=== PATIENT | female | born 1980 | race Caucasian/White ===

== ENCOUNTER 2019-11-11 13:25 | Outpatient (CLI) | payer BC, SELFPAY ==
--- NOTE | ~2019-11-11 | US_ITS ---
EXAMINATION: US pelvic complete w TV EXAM DATE: 11/11/2019 14:30 INDICATION: Abnormal uterine bleeding. TECHNIQUE: Pelvic transabdominal and transvaginal sonogram was performed. There are multiple graysca le and Doppler images available for interpretation. There is no prior study for comparison. FINDINGS: Uterus measures 9.9 x 3.8 x 5.4 cm, and is morphologically normal. Endometrial stripe agustina sures 6 mm, within normal limits. There are nabothian cysts. There is no free pelvic fluid. Right adnexa: The ovary measures 1.7 x 2.4 x 1.5 cm and is morphologically normal. Ovarian vascular f low confirmed. Left adnexa: The ovary measures 2.5 x 1.7 x 2.9 cm and is morphologically normal. Ovarian vascular fl ow confirmed. IMPRESSION: Nabothian cysts. Reviewed, dictated and finalized at location A. IMPRESSION: Nabothian cysts.
[2019-11-11 14:45] LABS: Basophils Absolute Auto 0.1 K/mm3 (0.0-0.1); Basophils Percent Auto 0.7 % (0.2-1.2); Eosinophils Absolute Auto 0.1 K/mm3 (0-0.3); Eosinophils Percent Auto 0.9 % (0-4.4); Hematocrit 39.2 % (37.0-47.0); Hemoglobin 13.2 g/dL (12.0-15.0); Immature Granulocyte Absolute 0.02 K/mm3 (0.00-0.031); Immature Granulocyte Percent A 0.3 % (0-0.5); Lymphocytes Absolute Auto 1.91 K/mm3 (0.9-3.2); Lymphocytes Percent Auto 25.8 % (18.3-44.2); Mean Corpuscular HGB Conc 33.7 g/dl (32-36); Mean Corpuscular Hemoglobin 30.4 pg (26-34); Mean Corpuscular Volume 90.3 fl (80-100); Mean Platelet Volume 10.6 fl (7.4-10.4); Monocytes Absolute Auto 0.6 K/mm3 (0.1-0.6); Monocytes Percent Auto 8.2 % (2.6-8.5); Neutrophils Absolute Auto 4.7 K/mm3 (1.3-6.7); Neutrophils Percent Auto 64.1 % (45.5-73.1); Platelet Count Result 316 k/mm3 (150-375); Red Blood Count 4.34 M/mm3 (4.2-5.4); Red Cell Distribution Width 12.6 % (11.5-14.5); White Blood Count 7.4 K/mm3 (4.5-10.0)
[2019-11-11 15:03] LABS: Alanine Aminotransferase 17 U/L (4-35); Albumin Level 4.5 g/dL (3.5-5.1); Alkaline Phosphatase 57 U/L (38-126); Anion Gap 8 mmol/L (8-16); Aspartate Amino Transferase 26 U/L (14-36); Bilirubin,Total 1.4 mg/dL (0.2-1.3); Blood Urea Nitrogen 27 mg/dL (7-17); Calcium 8.9 mg/dL (8.4-10.2); Carbon Dioxide 27 mmol/L (22-30); Chloride 103 mmol/L (98-107); Cholesterol 188 mg/dL (0-200); Estimated Glomerular Filt Rate > 60; Glucose 80 mg/dL (65-105); HDL Direct 62 mg/dL; Potassium 3.9 mmol/L (3.4-5.0); Sodium 138 mmol/L (137-145); Triglycerides 236 mg/dL (<150)
[2019-11-11 15:04] LABS: Hemoglobin A1C 5.1 % (<5.7)
[2019-11-11 15:11] LABS: Beta HCG Quantitative < 2.39 mIU/ML
[2019-11-11 15:15] LABS: LDL Cholesterol Direct 86 mg/dL
[2019-11-11 15:43] LABS: Vitamin D 25 Hydroxy 72.7 ng/mL
[2019-11-11 16:00] LABS: Folic Acid 14.7 ng/mL (2.76->20)
[2019-11-15 05:32] LABS: FSH 9.4 mIU/mL (***)
== END 2019-11-11 13:26 | disposition home or self-care (01) ==
PROVIDERS: Visit Provider Obstetrics & Gynecology
DX: N93.9 Abnormal uterine and vaginal bleeding, unspecified (principal); Z01.419 Encounter for gynecological examination (general) (routine) without abnormal findings; N88.8 Other specified noninflammatory disorders of cervix uteri
CPT/HCPCS: 36415; 76830; 76856; 80053; 80061; 82306; 82607; 82746; 83001; 83036; 84443; 84702; 85025

== ENCOUNTER → 2020-01-12 13:20 | Outpatient (CLI) | payer BC, SELFPAY ==
--- NOTE | ~2020-01-12 | MM_ITS ---
EXAMINATION: MM scrn pedro implant BI w ankur HISTORY: Screening mammogram TECHNIQUE: Craniocaudal and mediolateral oblique 3-D tomosynthesis images with implant displacement a nd synthetic 2-D images were generated. Craniocaudal and mediolateral oblique views of the breasts wi thout implant displacement were obtained using full field digital mammography. CAD analysis was submi tted and interpreted. COMPARISON: 06/18/2018 BREAST PARENCHYMAL COMPOSITION: The breasts are heterogeneously dense, which may obscure small masses . FINDINGS: There is no evidence of suspicious mass, calcification, or architectural distortion to sugg est malignancy in either breast. There has been no suspicious interval change. IMPRESSION: 1. No mammographic evidence of malignancy. 2. Recommend routine screening mammography in one year. BI-RADS Category 1: Negative Reviewed, dictated and finalized at location A.
== END ==
PROVIDERS: Visit Provider Obstetrics & Gynecology
DX: Z12.31 Encounter for screening mammogram for malignant neoplasm of breast (principal)
CPT/HCPCS: 77063; 77067

== ENCOUNTER 2020-04-27 03:16 | Emergency (ER) | payer BC, SELFPAY ==
--- NOTE | ~2020-04-27 | CT_ITS ---
EXAMINATION: CT abdomen pelvis wo con DATE: 04/27/2020 03:57 INDICATION: Right flank pain. TECHNIQUE: Computed tomography (CT) of the abdomen and pelvis was performed without intravenous contr ast. Automated exposure control and iterative reconstruction technique were employed. The dose-length product was 172.10 mGy-cm. COMPARISON: None FINDINGS: Minimal dependent atelectasis in the bilateral lower lobes. Heart size is normal. No pericardial or p leural effusion. Bilateral breast implants. Liver, gallbladder, spleen, pancreas and bilateral adrena l glands are normal. 2-3 mm stone at the left ureterovesicular junction. Mild dilation of the left re nal pelvis without maged hydronephrosis or hydroureter. A couple additional 1 mm stones in the lower poles of both kidneys. A few phleboliths in the pelvis. Bladder is normal. 3.2 cm right adnexal cyst. Anteverted uterus and left adnexa are unremarkable. Bowels including appendix are normal. Minimal li oleksandr physiologic free fluid in the pelvis. No pathologically enlarged abdominal or pelvic lymphadenop athy. Mild to moderate lower thoracic spondylosis. IMPRESSION: 1. Bilateral nephrolithiasis with likely partially obstructing 2-3 mm stone at the left ureterovesicu lar junction with mild dilation of the left renal pelvis but no maged hydronephrosis. Reviewed, dictated and finalized at location B. REMOVER IMPRESSION: 1. Bilateral nephrolithiasis with likely partially obstructing 2-3 mm stone at the left ureterovesicular junction with mild dilation of the left renal pelvis but no maged hydronephrosis.
[2020-04-27 03:18] VITALS: BP 156/111; PULSE 77; RESP 18; TEMP 36.4; O2SAT 100
[2020-04-27] MEDS: SODIUM CHLORIDE 0.9% IV 1,000 ML 999 ML IV CONT (03:49)
[2020-04-27] MEDS: MORPHINE SULFATE (*CRX) 4 MG/ML INJ IV PUSH (03:50)
[2020-04-27] MEDS: ONDANSETRON INJ 4 MG/2 ML VIAL IV PUSH (03:50)
[2020-04-27 03:51] LABS: Basophils Absolute Auto 0.1 K/mm3 (0.0-0.1); Basophils Percent Auto 0.7 % (0.2-1.2); Eosinophils Absolute Auto 0.1 K/mm3 (0-0.3); Hematocrit 43.5 % (37.0-47.0); Hemoglobin 14.5 g/dL (12.0-15.0); Immature Granulocyte Absolute 0.03 K/mm3 (0.00-0.031); Immature Granulocyte Percent A 0.2 % (0-0.5); Lymphocytes Absolute Auto 3.83 K/mm3 (0.9-3.2); Lymphocytes Percent Auto 30.9 % (18.3-44.2); Mean Corpuscular HGB Conc 33.3 g/dl (32-36); Mean Corpuscular Hemoglobin 30.7 pg (26-34); Mean Platelet Volume 9.8 fl (7.4-10.4); Monocytes Percent Auto 8.4 % (2.6-8.5); Neutrophils Absolute Auto 7.3 K/mm3 (1.3-6.7); Neutrophils Percent Auto 58.8 % (45.5-73.1); Platelet Count Result 329 k/mm3 (150-375); Red Blood Count 4.73 M/mm3 (4.2-5.4); Red Cell Distribution Width 12.5 % (11.5-14.5); White Blood Count 12.4 K/mm3 (4.5-10.0)
[2020-04-27 03:56] LABS: Add Urine Microscopic? YES; Appearance Urine Cloudy (Clear); Bacteria Urine Trace /hpf; Bilirubin Urine Negative (Negative); Blood Urine 3+ (Negative); Color Urine Yellow (Yellow); Glucose Urine UA Negative (Negative); Ketones Urine Trace mg/dL (Negative); Leukocyte Esterase Ur Negative LEU/UL (Negative); Mucus Urine Few /lpf; Nitrate Urine Negative (Negative); Protein Urine 2+ mg/dL (Negative); RBC Urine 21-50 /hpf (0-2); Specific Grav Ur 1.031 (1.001-1.035); Squamous Epithelial Cell Urine Many /hpf (Few); Urobilinogen Urine Negative mg/dL (<2.0)
[2020-04-27] MEDS: KETOROLAC 30 MG/ML VIAL (*BKC) IV PUSH (03:59)
[2020-04-27 04:05] LABS: Alanine Aminotransferase 100 U/L (4-35); Albumin Level 4.8 g/dL (3.5-5.1); Alkaline Phosphatase 61 U/L (38-126); Anion Gap 5 mmol/L (8-16); Aspartate Amino Transferase 59 U/L (14-36); Bilirubin,Total 1.2 mg/dL (0.2-1.3); Blood Urea Nitrogen 27 mg/dL (7-17); Calcium 9.8 mg/dL (8.4-10.2); Carbon Dioxide 32 mmol/L (22-30); Chloride 102 mmol/L (98-107); Estimated CRCL calculation 47 ml/min; Estimated Glomerular Filt Rate 54; Glucose 117 mg/dL (65-105); Lipase 1071 U/L (23-300); Potassium 3.4 mmol/L (3.4-5.0); Sodium 139 mmol/L (137-145)
--- NOTE | 2020-04-27 04:17 | ED.GENADULT ---
HPI - General Adult General Chief complaint: Abdominal Pain Stated complaint: left abd/flank pain Time Seen by Provider: 04/27/20 03:37 History of Present Illness HPI narrative: Patient 40-year-old female presents emerged part with chief complaint of left flank pain. Patient states the pain began suddenly this evening reports it is not improved by anything reports he is unable to comfortable in any position. Patient reports he had some nausea reports the pain is sharp. The patient reports that she has had prior history of an ovarian cyst in the past. The patient reports that she has just finished her period. Related Data Allergies Allergy/AdvReac Type Severity Reaction Status Date / Time No Known Allergies Allergy Mild Verified 04/27/20 03:20 Review of Systems Review of Systems: Narrative: A 10 system review of systems was completed on the patient and is negative except for what is stated in the HPI. Nursing and ancillary documentation was reviewed. [facility] Social History Social History Gender identity (if verbalized by the patient): Female Comments Past medical history significant for an ovarian cyst Social history the patient denies smoking Exam Narrative: Exam Narrative: GENERAL: Well-appearing, well-nourished, and in no acute distress. HEAD: Normocephalic, atraumatic. EYES: PERRLA and EOMI. ENT: Nares clear, no rhinorrhea or epistaxis. Mucous membranes moist. NECK: Supple. CHEST: Clear to auscultation. No respiratory distress. HEART: Regular rate and rhythm. No murmur heard. Normal peripheral pulses. ABDOMEN: Soft, nontender, nondistended, normal active bowel sounds. EXTREMITIES: Normal range of motion. No edema. SKIN: Warm, dry, no rash. NEURO: No focal deficits. Alert and oriented x3. PSYCH: Normal mood and affect. Course Course Emergency Course: CT scan of the abdomen pelvis showed a 2 to 3 mm stone at the left UVJ there is no evidence of acute pancreatitis on the CT scan. Vital Signs Vital signs: Vital Signs Temperature 36.4 C L 04/27/20 03:18 Pulse Rate 77 04/27/20 03:18 Respiratory Rate 18 04/27/20 03:18 Blood Pressure 156/111 H 04/27/20 03:18 Pulse Oximetry 100 04/27/20 03:18 Temperature 36.4 C L 04/27/20 03:18 Pulse Rate 74 04/27/20 04:38 Respiratory Rate 17 04/27/20 04:38 Blood Pressure 114/62 04/27/20 04:38 Pulse Oximetry 100 04/27/20 04:38 Medical Decision Making Vital Signs Vital Signs: Vital Signs Temperature 36.4 C L 04/27/20 03:18 Pulse Rate 77 04/27/20 03:18 Respiratory Rate 18 04/27/20 03:18 Blood Pressure 156/111 H 04/27/20 03:18 Pulse Oximetry 100 04/27/20 03:18 Temperature 36.4 C L 04/27/20 03:18 Pulse Rate 74 04/27/20 04:38 Respiratory Rate 17 04/27/20 04:38 Blood Pressure 114/62 04/27/20 04:38 Pulse Oximetry 100 04/27/20 04:38 Lab Data Result diagrams: 04/27/20 03:45 04/27/20 03:45 Labs: Lab Results 04/27/20 04/27/20 04/27/20 Range/Units 03:45 03:45 03:46 WBC 12.4 H (4.5-10.0) K/mm3 RBC 4.73 (4.2-5.4) M/mm3 Hgb 14.5 (12.0-15.0) g/dL Hct 43.5 (37.0-47.0) % MCV 92.0 (80-100) fl MCH 30.7 (26-34) pg MCHC 33.3 (32-36) g/dl RDW 12.5 (11.5-14.5) % Plt Count 329 (150-375) k/mm3 MPV 9.8 (7.4-10.4) fl Immature Gran % (Auto) 0.2 (0-0.5) % Neut % (Auto) 58.8 (45.5-73.1) % Lymph % (Auto) 30.9 (18.3-44.2) % [place] % (Auto) 8.4 (2.6-8.5) % Eos % (Auto) 1.0 (0-4.4) % Baso % (Auto) 0.7 (0.2-1.2) % Lymph # (Auto) 3.83 H (0.9-3.2) K/mm3 [place] # (Auto) 1.0 H (0.1-0.6) K/mm3 Eos # (Auto) 0.1 (0-0.3) K/mm3 Baso # (Auto) 0.1 (0.0-0.1) K/mm3 Abs Immat Gran (auto) 0.03 (0.00-0.031) K/mm3 Absolute Neuts (auto) 7.3 H (1.3-6.7) K/mm3 Absolute Nucleated RBC 0.0 (0.0-0.012) K/mm3 Nucleated RBC % 0.0 (0.0-0.2) % Sodium 139 (137-145) mmol/L Potassium 3.4 (3.4
[2020-04-27 04:38] VITALS: BP 114/62; PULSE 74; RESP 17; O2SAT 100
[2020-04-27 06:00] VITALS: BP 112/60; PULSE 71; RESP 18; O2SAT 99
== END 2020-04-27 06:03 | disposition home or self-care (01) ==
PROVIDERS: Emergency Provider Emergency Medicine
DX: N20.2 Calculus of kidney with calculus of ureter (principal); R74.01 Elevation of levels of liver transaminase levels; R74.8 Abnormal levels of other serum enzymes
CPT/HCPCS: 36415; 74176; 80053; 81001; 81025; 83690; 85025; 96361; 96374; 96375; 99284; J1885; J2270; J2405; J7030

== ENCOUNTER 2020-08-10 07:41 | Outpatient (CLI) | payer BC, SELFPAY ==
--- NOTE | ~2020-08-10 | US_ITS ---
EXAMINATION: US right upper quadrant DATE: 08/10/2020 08:09 INDICATION: Right upper quadrant abdominal pain. TECHNIQUE: Multiple grayscale and Doppler ultrasound images of the abdomen were obtained. COMPARISON: CT abdomen and pelvis 04/27/2020 FINDINGS: The visualized portions of the head of the pancreas are normal. The liver is normal without focal lesion. No liver surface nodularity. There is normal flow in main portal vein. The gallbladder is normal in size. No gallstones or gallbladder wall thickening. There was no sonographic Castaneda sig n. The common duct is normal and measures 3 mm. IMPRESSION: 1. Normal right upper quadrant ultrasound. Reviewed, dictated and finalized at location B.
== END 2020-08-10 07:42 | disposition home or self-care (01) ==
LOC: ANHIMG 07:47
PROVIDERS: PCP Nurse Practitioner Family; Visit Provider Nurse Practitioner Family
DX: R10.11 Right upper quadrant pain (principal)
CPT/HCPCS: 76705

== ENCOUNTER 2021-09-27 08:38 | Outpatient (CLI) | payer BC, SELFPAY ==
--- NOTE | ~2021-09-27 | US_ITS ---
US abdomen limited DATE: 09/27/2021 09:09 INDICATION: Right upper quadrant abdominal pain, discomfort for 2 to 3 months TECHNIQUE: Real-time imaging of liver, pancreas, gallbladder, Doppler evaluation COMPARISON: 08/10/2020 right upper quadrant abdominal ultrasound 04/27/2020 CT abdomen pelvis FINDINGS: There is an opacity 5.7 mm hypoechoic area in the pancreatic tail area. No such abnormality is evident in the pancreas on the 04/27/2020 CT abdomen pelvis examination. CT pancreas examination i s recommended. The liver is unremarkable. Normal hepatopedal portal venous flow direction. No gallstones or gallbladder wall thickening or abnormal pericholecystic fluid collection is noted. N egative sonographic Castaneda's sign. The common bile duct measures approximately 4 mm, within normal range. IMPRESSION: 5 mm hypoechoic lesion of the pancreatic tail is suggested; CT abdomen examination with a ttention to the pancreas is recommended Reviewed, dictated and finalized at Location A. Reviewed, dictated and finalized at location B. IMPRESSION: 5 mm hypoechoic lesion of the pancreatic tail is suggested; CT abdo men examination with attention to the pancreas is recommended
[2021-09-27 09:30] LABS: Basophils Absolute Auto 0.1 K/mm3 (0.0-0.1); Basophils Percent Auto 0.8 % (0.2-1.2); Eosinophils Absolute Auto 0.1 K/mm3 (0-0.3); Eosinophils Percent Auto 1.3 % (0-4.4); Hematocrit 38.9 % (37.0-47.0); Hemoglobin 12.5 g/dL (12.0-15.0); Immature Granulocyte Absolute 0.03 K/mm3 (0.00-0.031); Immature Granulocyte Percent A 0.4 % (0-0.5); Lymphocytes Absolute Auto 1.62 K/mm3 (0.9-3.2); Lymphocytes Percent Auto 22.6 % (18.3-44.2); Mean Corpuscular HGB Conc 32.1 g/dl (32-36); Mean Corpuscular Hemoglobin 29.8 pg (26-34); Mean Corpuscular Volume 92.6 fl (80-100); Mean Platelet Volume 10.5 fl (7.4-10.4); Monocytes Absolute Auto 0.6 K/mm3 (0.1-0.6); Monocytes Percent Auto 7.7 % (2.6-8.5); Neutrophils Absolute Auto 4.8 K/mm3 (1.3-6.7); Neutrophils Percent Auto 67.2 % (45.5-73.1); Platelet Count Result 301 k/mm3 (150-375); Red Cell Distribution Width 13.4 % (11.5-14.5); White Blood Count 7.2 K/mm3 (4.5-10.0)
[2021-09-27 09:45] LABS: Hemoglobin A1C 5.3 % (<5.7)
[2021-09-27 09:49] LABS: Alanine Aminotransferase 18 U/L (6-35); Alkaline Phosphatase 57 U/L (38-126); Anion Gap 2 mmol/L (8-16); Aspartate Amino Transferase 24 U/L (14-36); Bilirubin,Total 1.2 mg/dL (0.2-1.3); Blood Urea Nitrogen 22 mg/dL (7-17); Calcium 8.7 mg/dL (8.4-10.2); Carbon Dioxide 29 mmol/L (22-30); Chloride 107 mmol/L (98-107); Cholesterol 174 mg/dL (0-200); Estimated Glomerular Filt Rate > 60; Glucose 87 mg/dL (65-110); HDL Direct 65 mg/dL; Lipase 82 U/L (23-300); Potassium 4.3 mmol/L (3.4-5.0); Sodium 138 mmol/L (137-145); Triglycerides 55 mg/dL (<150)
[2021-09-27 09:56] LABS: LDL Cholesterol Direct 73 mg/dL
[2021-09-27 10:32] LABS: Vitamin D 25 Hydroxy 68.4 ng/mL
[2021-09-27 11:00] LABS: Folic Acid 9.4 ng/mL (2.76->20)
== END 2021-09-27 08:39 | disposition home or self-care (01) ==
PROVIDERS: PCP Nurse Practitioner Family; Visit Provider Obstetrics & Gynecology
DX: Z00.00 Encounter for general adult medical examination without abnormal findings (principal); R10.11 Right upper quadrant pain
CPT/HCPCS: 36415; 76705; 80053; 80061; 82306; 82607; 82746; 83036; 83690; 85025

== ENCOUNTER 2021-11-05 10:31 | Outpatient (CLI) | payer BC, SELFPAY ==
--- NOTE | ~2021-11-05 | CT_ITS ---
EXAMINATION: CT abdomen pelvis w con DATE: 11/05/2021 10:59 INDICATION: Right upper quadrant abdominal pain TECHNIQUE: Computed tomography (CT) of the abdomen and pelvis was performed with 100 CC Omnipaque 350 intravenous contrast. Automated exposure control and iterative reconstruction technique were employe d. Exam dose: 248.03 mGy-cm total exam DLP. COMPARISON: 09/27/2021 Limited abdominal ultrasound; 5 mm hypoechoic lesion at pancreatic tail is sugge sted 08/10/2020 right upper quadrant ultrasound examination, reported normal 04/27/2020 CT abdomen pelvis noncontrast examination: Bilateral nephrolithiasis and partial obstructio n due to 3 mm stone at left ureterovesical junction FINDINGS: The lung bases are clear. Normal heart size. No pericardial or pleural effusion. Status post bilateral augmentation mammoplasty. The liver, gallbladder, bile ducts, spleen, pancreas, pancreatic duct, and adrenal glands and kidneys appear within normal limits. No pancreatic mass lesion or cyst or calcification is noted. No urinary tract calculus or hydroureteronephrosis. Normal caliber of the abdominal aorta. No intraperitoneal or retroperitoneal or pelvic mass lesion or adenopathy or ascites. Uterus, ovaries and urinary bladder are unremarkable. Minimal likely physiologic fluid in the posteri or cul-de-sac. Normal appendix. No bowel obstruction, bowel wall thickening, pneumatosis or intraperitoneal free air . Included skeletal structures are unremarkable. IMPRESSION: No significant abnormality. Normal appendix. No evidence of pancreatic mass lesion or cyst Reviewed, dictated and finalized at Location A. Reviewed, dictated and finalized at location B.
== END 2021-11-05 10:32 | disposition home or self-care (01) ==
PROVIDERS: PCP Nurse Practitioner Family; Visit Provider Physician Assistant
DX: R10.11 Right upper quadrant pain (principal)
CPT/HCPCS: 74177; Q9967

== ENCOUNTER → 2021-11-26 12:52 | Outpatient (CLI) | payer BC, SELFPAY ==
--- NOTE | ~2021-11-26 | MM_ITS ---
EXAMINATION: MM scrn pedro implant BI w ankur HISTORY: Screening mammogram TECHNIQUE: Craniocaudal and mediolateral oblique 3-D tomosynthesis images with implant displacement a nd synthetic 2-D images were generated. Craniocaudal and mediolateral oblique views of the breasts wi thout implant displacement were obtained using full field digital mammography. CAD analysis was submi tted and interpreted. COMPARISON: 01/12/2020, 06/18/2018 BREAST PARENCHYMAL COMPOSITION: There are scattered areas of fibroglandular density. FINDINGS: There is no evidence of suspicious mass, calcification, or architectural distortion to sugg est malignancy in either breast. There has been no suspicious interval change. IMPRESSION: 1. No mammographic evidence of malignancy. 2. Recommend routine screening mammography in one year. BI-RADS Category 1: Negative Reviewed, dictated and finalized at location A.
== END ==
PROVIDERS: PCP Obstetrics & Gynecology; Visit Provider Obstetrics & Gynecology
DX: Z12.31 Encounter for screening mammogram for malignant neoplasm of breast (principal)
CPT/HCPCS: 77063; 77067

== ENCOUNTER 2024-04-26 13:52 | Emergency (ER) | payer BC, SELFPAY ==
--- NOTE | 2024-04-26 13:55 | ED.URI ---
HPI - URI/Sore Throat General Chief Complaint: Upper Respiratory Infection Stated Complaint: Chest Pain/Sore Throat Time Seen by Provider: 04/26/24 14:35 Source: patient and RN notes reviewed Mode of arrival: ambulatory Limitations: no limitations History of Present Illness HPI Narrative: 44-year-old female presents with concern for cough with mid chest burning that started today. Reports she is getting slight headache. Reports her daughter has influenza. She does not want an influenza test. She denies for, runny nose, stuffy nose, sore throat, shortness of breath MD elicited complaint: cough Related Data Home Medications ?Medication ?Instructions ?Recorded ?Confirmed ?Last Taken ?Type spironolactone 25 mg tablet 25 mg PO DAILY 08/20/21 Unknown History Allergies Allergy/AdvReac Type Severity Reaction Status Date / Time No Known Allergies Allergy Mild Verified 08/20/21 13:50 Review of Systems Review of Systems: CONSTITUTIONAL: Denies malaise, chills, sweats, or fever. EYES: Denies visual changes, redness, or discharge. ENT: Denies rhinorrhea, congestion, sinus pain, otalgia and sore throat. CARDIOVASCULAR: Denies chest pain, palpitations, or edema. RESPIRATORY: Reports cough. Denies dyspnea. GASTROINTESTINAL: Denies abdominal pain, nausea, vomiting, diarrhea SKIN: Denies rash or itching. MUSCULOSKELETAL: Denies myalgia. NEUROLOGIC: Reports headache. All systems reviewed & are unremarkable except as noted in HPI and below PMFSH Past Medical History Medical History H/O dizziness Headache Surgical History Surgical History Delivery by section x 3 H/O abdominoplasty H/O breast augmentation H/O tubal ligation Family History Family History (Updated 08/20/21 @ 13:51 by Ana Esparza MA) Mother Carcinoma of colon Other Testicular cancer Social History Social History (Updated 08/20/21 @ 13:52 by Ana Esparza MA) Smoking status: Never smoker Alcohol intake: never Substance use: never Substance use type: does not use Living arrangements: with family Occupation/Education: occupation Additional occupation/education comments: protection officer at [employer] Gender identity (if verbalized by the patient): Female Sexual Orientation (if Verbalized by the Patient): Straight or Heterosexual Comments At time of signature, agree with nursing past medical, surgical, social and family history. There is no relevant family history pertinent to the presenting complaint Exam Narrative: GENERAL: Well-appearing, well-nourished, and in no acute distress. HEAD: Normocephalic EYES: PERRLA, conjunctivae clear ENT: Nares clear. Mucous membranes moist. TM pearly azar with sharp light reflex bilaterally; no tragal tenderness. Oropharynx not erythematous without lesions. Tonsils not enlarged and without exudate, no drooling, no hoarseness, no trismus, uvula midline. NECK: Supple. No lymphadenopathy CHEST: Clear to auscultation, breath sounds equal. No wheezing, rhonchi, rales, or stridor. No respiratory distress, speaks in full sentences. HEART: Regular rate and rhythm. No murmur heard. SKIN: Warm, dry, no rash. NEURO: Alert and oriented x3. PSYCH: Normal mood and affect Course Course Emergency Course: Patient is aware of diagnosis, understands and agrees to treatment plan. Anticipatory guidance given. Patient agrees to follow-up as directed and is aware of reasons to seek care at the emergency department. Portions of this record may have been created with voice recognition software Level of Care: Express Care Visit Vital Signs Vital signs: Reviewed. MDM - URI/Sore Throat MDM Narrative Medical decision making narrative: Differential diagnosis considered: Reynoso virus, strep pharyngitis, allergic rhinitis, upper respiratory tract infection, sinusitis, rhinosinusitis, nasopharyngitis. viral pharyngitis, otitis media, otitis externa, pneumonia, bronchitis, viral cough syndrome, viral syndrome, and influenza. Exam findings show no acute concerns or changes; patient is non-toxic appearing and is in no distress. Patient is appropriate for outpatient treatment and follow-up. Lab Data Attestation: I reviewed the patient's lab results. Critical Care Time Critical Care Time Critical Care Time: No Discharge Plan Discharge Clinical Impression: Cough Patient Disposition: Home, Self-Care Condition: Stable Instructions: Acute Cough (ED) Additional Instructions: Viral illness may last between 7-21 days; antibiotics do not cure viral illness and are NOT recommended at this time. Recommend antihistamine such as Benadryl at night time and Zyrtec or Jenna during the day Cough syrup may cause drowsiness; avoid driving or take it at night time. Also, recommend symptomatic treatment includes: rest, fluids, and increase humidity of the air at home. Recommend Acetaminophen as directed on the bottle to reduce fever, pain, headache. Avoid smoking/second-hand smoke. Please schedule a follow-up visit with your personal physician for further evaluation and treatment within 3-5days. If your symptoms persist, change or worsen significantly before you can contact your personal physician then please, without delay, go to the emergency department for further evaluation. Patient Language: Uzbek Prescriptions: New promethazine-DM 6.25-15 mg/5 mL syrup 5 ml PO Q4-6H PRN (Reason: cough) Qty: 120 0RF No Action spironolactone 25 mg tablet 25 mg PO DAILY ondansetron 4 mg tablet,disintegrating 4 mg PO Q8H PRN (Reason: nausea and vomiting) Qty: 12 0RF Follow-up/Referrals: PHYSICIAN,MANAGER CUSTOMER [Primary Care Provider] - Time of Disposition: 14:47
[2024-04-26 14:16] VITALS: BP 125/71; PULSE 86; RESP 16; TEMP 37.1; O2SAT 99
== END 2024-04-26 14:49 | disposition home or self-care (01) ==
PROVIDERS: Emergency Provider Nurse Practitioner
DX: R05.9 Cough, unspecified (principal)
CPT/HCPCS: 99213; G0463